=== PATIENT | female | born 1955 | race Caucasian/White ===

== ENCOUNTER 2021-02-23 14:40 | Inpatient (IN) | payer MEDICARE, OTHER ==
[2021-02-23 16:40] LABS: #Monocytes 0.5 10x3/uL (0.0-1.1); #Neutrophils 5.8 10x3/uL (1.5-8.4); %Basophils 0.5 % (0.0-2.0); %Lymphocytes 15.2 % (18.0-47.0); %Monocytes 6.7 % (0.0-10.0); %Neutrophils 76.9 % (40.0-75.0); Hemoglobin 11.4 g/dL (12.0-15.5); Mean Corpuscular HGB CONC 30.9 g/dL (32.0-36.0); Mean Corpuscular Hemoglobin 27.5 pg (27.0-33.0); Mean Corpuscular Volume 89.1 fl (81.6-98.3); Mean Platelet Volume 8.8 fl (7.4-10.4); Platelet Count 233 10x3/uL (150-450); RBC Distribution Width 15.4 % (11.5-14.5); Red Blood Cell (RBC) Count 4.14 10x6/uL (3.90-5.03); White Blood Cell (WBC) Count 7.6 10x3/uL (3.5-10.5)
[2021-02-23] MEDS ORDERED: Piperacillin/Tazobactam 4.5 GM VIAL ONE (16:52)
[2021-02-23 16:55] LABS: ALT (SGPT) 34 U/L (8-55); AST (SGOT) 26 U/L (5-34); Albumin 4.2 g/dL (3.4-4.8); Alkaline Phosphatase 67 U/L (40-110); Anion Gap 15 mmol/L (10-20); BUN (Urea Nitrogen) 22 mg/dL (9.8-20.1); Bilirubin, Total 0.4 mg/dL (0.2-1.2); Calc. Creatinine Clearance 0 mL/min (70-130); Calcium 9.8 mg/dL (7.8-10.44); Carbon Dioxide 25 mmol/L (23-31); Chloride 104 mmol/L (98-107); Globulin 2.9 g/dL (2.4-3.5); Glucose 128 mg/dL (80-115); Protein, Total 7.1 g/dL (5.8-8.1); Sodium 140 mmol/L (136-145)
[2021-02-23 17:36] LABS: Bilirubin Neg (Negative); Blood, Urine Negative (Negative); Clarity Clear (Clear); Glucose, Urine (Dipstick) Normal (Negative); Ketone, Urine Negative (Negative); Leukocyte Negative (Negative); Nitrite Negative (Negative); Protein, Urine (Dipstick) Negative (Neg-Trace); Urobilinogen Normal mg/dL (Less than 2)
[2021-02-23] MEDS ORDERED: Acetaminophen 325 MG TAB PO PRN (20:35)
[2021-02-23] MEDS ORDERED: SUMAtriptan Succinate 6 MG/0.5 ML VIAL SC PRN (20:41)
[2021-02-23 21:49] VITALS: BMI 56.0
[2021-02-23] MEDS ORDERED: Atorvastatin Calcium 20 MG TAB PO SCH (22:00)
[2021-02-23] MEDS ORDERED: Lantus 1000 UNITS/10 ML VIAL SC SCH (22:00)
[2021-02-23] MEDS ORDERED: Furosemide 20 MG TAB PO SCH (22:00)
[2021-02-23] MEDS ORDERED: Enoxaparin Sodium 40 MG/0.4 ML SYRINGE SC SCH (22:00)
[2021-02-23] MEDS ORDERED: Vancomycin HCl 1 GM in Sodium Chloride 0.9% 250 ML 250 ML IVPB SCH (22:00)
[2021-02-23] MEDS: traMADol HCl 50 MG TAB PO PRN (22:38)
[2021-02-23] MEDS: Piperacillin/Tazobactam 3.375 GM in Sodium Chloride 0.9% 100 ML IVPB SCH (22:40)
[2021-02-23] MEDS: Ventolin HFA Inhaler 60 PUFF INHALER INH PRN (22:40)
[2021-02-23] MEDS ORDERED: Piperacillin/Tazobactam 4.5 GM in Sodium Chloride 0.9% 100 ML IVPB SCH (23:59)
[2021-02-24] MEDS: HYDROcodone/Acetaminophen 5/325 mg Tablet PO PRN ×3 (00:15→20:04)
[2021-02-24] MEDS: Ventolin HFA Inhaler 60 PUFF INHALER INH PRN (05:46)
[2021-02-24] MEDS: Piperacillin/Tazobactam 3.375 GM in Sodium Chloride 0.9% 100 ML IVPB SCH ×3 (05:47→21:44)
[2021-02-24 06:20] LABS: #Basophils 0.1 10x3/uL (0.0-0.2); #Monocytes 0.6 10x3/uL (0.0-1.1); #Neutrophils 4.7 10x3/uL (1.5-8.4); %Basophils 0.7 % (0.0-2.0); %Lymphocytes 23.1 % (18.0-47.0); %Monocytes 8.5 % (0.0-10.0); %Neutrophils 67.3 % (40.0-75.0); Hemoglobin 10.5 g/dL (12.0-15.5); Mean Corpuscular Hemoglobin 27.6 pg (27.0-33.0); Mean Platelet Volume 8.6 fl (7.4-10.4); RBC Distribution Width 15.6 % (11.5-14.5); Red Blood Cell (RBC) Count 3.81 10x6/uL (3.90-5.03); White Blood Cell (WBC) Count 6.9 10x3/uL (3.5-10.5)
[2021-02-24 06:22] LABS: Platelet Count 216 10x3/uL (150-450)
[2021-02-24] MEDS: Mometasone/Formoterol 200/5 60 PUFF INH SCH ×2 (06:38→19:26)
[2021-02-24 06:41] LABS: Anion Gap 14 mmol/L (10-20); BUN (Urea Nitrogen) 21 mg/dL (9.8-20.1); Calc. Creatinine Clearance 90 mL/min (70-130); Calcium 9.2 mg/dL (7.8-10.44); Carbon Dioxide 25 mmol/L (23-31); Chloride 105 mmol/L (98-107); Glucose 101 mg/dL (80-115); Potassium 3.9 mmol/L (3.5-5.1); Sodium 140 mmol/L (136-145)
[2021-02-24] MEDS ORDERED: Hydrochlorothiazide 25 MG TAB PO SCH (09:00)
[2021-02-24] MEDS ORDERED: VANCOMYCIN 2 GRAM/400 ML BAG 2 GM in Premix Bag 1 BAG IVPB SCH (09:00)
[2021-02-24] MEDS ORDERED: Furosemide 20 MG TAB PO SCH (09:00)
[2021-02-24] MEDS: HumaLOG 300 UNITS/3 ML VIAL SC SCH ×2 (09:08→11:44)
[2021-02-24] MEDS ORDERED: Dextrose 50% Abboject 50 ML SYRINGE IVP PRN (09:15)
[2021-02-24] MEDS ORDERED: Dextrose 5% in Water 1,000 ML IV PRN (09:15)
[2021-02-24] MEDS: Lantus 1000 UNITS/10 ML VIAL SC SCH ×2 (10:21→20:55)
[2021-02-24] MEDS: Losartan Potassium 50 MG TAB PO SCH (10:38)
[2021-02-24] MEDS: Mupirocin 2% Ointment 22 GM Tube TOP SCH ×3 (10:40→20:55)
[2021-02-24] MEDS: HumaLOG 300 UNITS/3 ML VIAL SC PRN (12:27)
[2021-02-24] MEDS: traMADol HCl 50 MG TAB PO PRN ×2 (12:29→23:53)
[2021-02-24 17:59] LABS: SARS-CoV-2 PCR by NAA Not Detected (NotDetected)
[2021-02-24] MEDS: Atorvastatin Calcium 20 MG TAB PO SCH (20:04)
[2021-02-25] MEDS: Piperacillin/Tazobactam 3.375 GM in Sodium Chloride 0.9% 100 ML IVPB SCH ×3 (05:34→21:02)
[2021-02-25] MEDS: Mometasone/Formoterol 200/5 60 PUFF INH SCH ×2 (05:35→18:22)
[2021-02-25] MEDS: HYDROcodone/Acetaminophen 5/325 mg Tablet PO PRN ×3 (05:35→23:43)
[2021-02-25] MEDS: Furosemide 20 MG TAB PO SCH (08:23)
[2021-02-25] MEDS: traMADol HCl 50 MG TAB PO PRN ×2 (08:23→20:59)
[2021-02-25] MEDS: Lantus 1000 UNITS/10 ML VIAL SC SCH ×2 (08:25→21:00)
[2021-02-25] MEDS: Losartan Potassium 50 MG TAB PO SCH (08:25)
[2021-02-25] MEDS: Mupirocin 2% Ointment 22 GM Tube TOP SCH ×3 (08:26→21:00)
[2021-02-25] MEDS ORDERED: VANCOMYCIN 2 GRAM/400 ML BAG 2 GM in Premix Bag 1 BAG IVPB SCH (09:00)
[2021-02-25] MEDS: HumaLOG 300 UNITS/3 ML VIAL SC PRN (12:20)
[2021-02-25] MEDS: Atorvastatin Calcium 20 MG TAB PO SCH (21:00)
[2021-02-26] MEDS: Piperacillin/Tazobactam 3.375 GM in Sodium Chloride 0.9% 100 ML IVPB SCH ×2 (05:47→14:03)
[2021-02-26] MEDS: HYDROcodone/Acetaminophen 5/325 mg Tablet PO PRN ×2 (05:47→12:17)
[2021-02-26 06:09] LABS: ALT (SGPT) 37 U/L (8-55); AST (SGOT) 25 U/L (5-34); Albumin 3.7 g/dL (3.4-4.8); Alkaline Phosphatase 59 U/L (40-110); Anion Gap 14 mmol/L (10-20); BUN (Urea Nitrogen) 21 mg/dL (9.8-20.1); Bilirubin, Total 0.4 mg/dL (0.2-1.2); Calc. Creatinine Clearance 96 mL/min (70-130); Calcium 9.2 mg/dL (7.8-10.44); Carbon Dioxide 26 mmol/L (23-31); Chloride 103 mmol/L (98-107); Globulin 2.4 g/dL (2.4-3.5); Glucose 136 mg/dL (80-115); Potassium 4.1 mmol/L (3.5-5.1); Protein, Total 6.1 g/dL (5.8-8.1); Sodium 139 mmol/L (136-145)
[2021-02-26] MEDS: Mometasone/Formoterol 200/5 60 PUFF INH SCH (07:14)
[2021-02-26] MEDS: Losartan Potassium 50 MG TAB PO SCH (08:36)
[2021-02-26] MEDS: traMADol HCl 50 MG TAB PO PRN (08:36)
[2021-02-26] MEDS: Furosemide 20 MG TAB PO SCH (08:36)
[2021-02-26] MEDS: Lantus 1000 UNITS/10 ML VIAL SC SCH (08:37)
[2021-02-26] MEDS: Mupirocin 2% Ointment 22 GM Tube TOP SCH ×2 (08:37→14:02)
[2021-02-26 13:05] VITALS: BP 142/67; TEMP 98.7
[2021-02-26] MEDS ORDERED: Doxycycline 100 MG CAP PO SCH (21:00)
== END 2021-02-26 15:25 | disposition home or self-care (01) | DRG 603 ==
LOC: CSHERS 14:40 → CSHTELE 21:44
PROVIDERS: ADMIT Family Medicine; ATTEND Family Medicine
DX: L03.115 Cellulitis of right lower limb (principal); Z68.43 Body mass index [BMI] 50.0-59.9, adult; E11.42 Type 2 diabetes mellitus with diabetic polyneuropathy; E78.5 Hyperlipidemia, unspecified; G47.33 Obstructive sleep apnea (adult) (pediatric); E66.01 Morbid (severe) obesity due to excess calories; Z79.4 Long term (current) use of insulin; I10 Essential (primary) hypertension; Z88.6 Allergy status to analgesic agent; Z88.1 Allergy status to other antibiotic agents; Z91.040 Latex allergy status; Z20.822 Contact with and (suspected) exposure to COVID-19; J45.20 Mild intermittent asthma, uncomplicated
CPT/HCPCS: 36415; 36416; 80048; 80053; 81003; 83605; 83735; 85025; 87040; 87635; 96365; 96366; 96367; J1650; J1815; J2543; J3370; J3490; J7050; U0003; U0005

== ENCOUNTER 2021-07-21 09:01 | Outpatient (CLI) | payer MEDICARE, OTHER | END 2021-07-21 09:02 | disposition home or self-care (01) | LOC: CSHULT 09:01 | PROVIDERS: ATTEND Urology | DX: N20.0 Calculus of kidney (principal); N28.1 Cyst of kidney, acquired | CPT/HCPCS: 74018; 76770 ==

== ENCOUNTER 2021-12-04 10:59 | Emergency (ER) | payer MEDICARE, OTHER ==
[2021-12-04] MEDS ORDERED: Dexamethasone 10 MG/ML VIAL ONE (11:58)
[2021-12-04] MEDS ORDERED: predniSONE 20 MG TAB ONE (11:58)
[2021-12-04 22:19] LABS: SARS-CoV-2 PCR by NAA DETECTED (NotDetected)
== END 2021-12-04 12:14 | disposition home or self-care (01) ==
LOC: CSHERS 10:59
DX: U07.1 COVID-19 (principal); J12.82 Pneumonia due to coronavirus disease 2019; I12.9 Hypertensive chronic kidney disease with stage 1 through stage 4 chronic kidney disease, or unspecified chronic kidney disease; N18.30 Chronic kidney disease, stage 3 unspecified; E10.22 Type 1 diabetes mellitus with diabetic chronic kidney disease; E78.5 Hyperlipidemia, unspecified; E78.00 Pure hypercholesterolemia, unspecified; J45.909 Unspecified asthma, uncomplicated; E66.9 Obesity, unspecified
CPT/HCPCS: 71045; 96372; 99285; U0003; U0005; J1100; J7512

== ENCOUNTER 2022-05-31 13:38 | Outpatient (CLI) | payer MEDICARE, OTHER ==
[~2022-05-31 13:38] MED LIST: Iopamidol 300 61% 100 ML VIAL FS ONE
== END 2022-05-31 13:39 | disposition home or self-care (01) ==
LOC: CSHCT 13:38
PROVIDERS: ATTEND Internal Medicine
DX: C18.7 Malignant neoplasm of sigmoid colon (principal); C78.7 Secondary malignant neoplasm of liver and intrahepatic bile duct; C78.00 Secondary malignant neoplasm of unspecified lung; E78.5 Hyperlipidemia, unspecified; C18.9 Malignant neoplasm of colon, unspecified; E11.40 Type 2 diabetes mellitus with diabetic neuropathy, unspecified; I12.9 Hypertensive chronic kidney disease with stage 1 through stage 4 chronic kidney disease, or unspecified chronic kidney disease; E11.22 Type 2 diabetes mellitus with diabetic chronic kidney disease; N18.32 Chronic kidney disease, stage 3b
CPT/HCPCS: 36415; 71260; 74177; 80053; 80061; 82043; 83036; 83540; 83550; 84439; 84443; 85025; Q9967

== ENCOUNTER 2022-11-22 08:36 | Outpatient (CLI) | payer MEDICARE, OTHER ==
[2022-11-22] MEDS ORDERED: Iopamidol 300 61% 100 ML VIAL FS ONE (13:19)
== END 2022-11-22 08:37 | disposition home or self-care (01) ==
LOC: CSHCT 08:36
PROVIDERS: ATTEND Internal Medicine Hematology & Oncology
DX: C18.7 Malignant neoplasm of sigmoid colon (principal); D50.0 Iron deficiency anemia secondary to blood loss (chronic); R91.8 Other nonspecific abnormal finding of lung field; R16.0 Hepatomegaly, not elsewhere classified; R59.0 Localized enlarged lymph nodes; N28.9 Disorder of kidney and ureter, unspecified
CPT/HCPCS: 71260; 74177; 82565; Q9967

== ENCOUNTER 2023-01-15 07:19 | Emergency (ER) | payer OTHER, MEDICARE ==
[2023-01-15] MEDS ORDERED: Morphine 4 MG/ML VIAL ONE (08:45)
== END 2023-01-15 08:55 | disposition home or self-care (01) ==
LOC: CSHERS 07:19
DX: S70.01XA Contusion of right hip, initial encounter (principal); S50.02XA Contusion of left elbow, initial encounter; E78.00 Pure hypercholesterolemia, unspecified; E66.9 Obesity, unspecified; E10.22 Type 1 diabetes mellitus with diabetic chronic kidney disease; I12.9 Hypertensive chronic kidney disease with stage 1 through stage 4 chronic kidney disease, or unspecified chronic kidney disease; N18.30 Chronic kidney disease, stage 3 unspecified; Z79.4 Long term (current) use of insulin; W01.0XXA Fall on same level from slipping, tripping and stumbling without subsequent striking against object, initial encounter
CPT/HCPCS: 96372; J2270

== ENCOUNTER 2023-02-20 08:42 | Outpatient (CLI) | payer MEDICARE, OTHER ==
[2023-02-20] MEDS ORDERED: Iopamidol 300 61% 100 ML VIAL FS ONE (15:55)
== END 2023-02-20 08:43 | disposition home or self-care (01) ==
LOC: CSHCT 08:42
PROVIDERS: ATTEND Internal Medicine Hematology & Oncology
DX: C18.9 Malignant neoplasm of colon, unspecified (principal); C78.00 Secondary malignant neoplasm of unspecified lung; K76.9 Liver disease, unspecified
CPT/HCPCS: 71260; 74177; Q9967

== ENCOUNTER 2023-02-24 11:03 | Emergency (ER) | payer MEDICARE, OTHER ==
[2023-02-24] MEDS ORDERED: Ondansetron PF 4 MG/2 ML Vial ONE (11:40)
[2023-02-24 12:06] LABS: #Monocytes 0.5 10x3/uL (0.0-1.1); #Neutrophils 2.5 10x3/uL (1.5-8.4); %Basophils 0.7 % (0.0-2.0); %Lymphocytes 24.5 % (18.0-47.0); %Monocytes 11.6 % (0.0-10.0); %Neutrophils 61.3 % (40.0-75.0); Hemoglobin 11.3 g/dL (12.0-15.5); Mean Corpuscular HGB CONC 32.3 g/dL (32.0-36.0); Mean Corpuscular Hemoglobin 31.2 pg (27.0-33.0); Mean Corpuscular Volume 96.7 fl (81.6-98.3); Mean Platelet Volume 9.7 fl (7.4-10.4); Platelet Count 148 10x3/uL (150-450); RBC Distribution Width 16.9 % (11.5-14.5); Red Blood Cell (RBC) Count 3.62 10x6/uL (3.90-5.03); White Blood Cell (WBC) Count 4.1 10x3/uL (3.5-10.5)
[2023-02-24 12:12] LABS: ALT (SGPT) 19 U/L (8-55); AST (SGOT) 24 U/L (5-34); Albumin 3.8 g/dL (3.4-4.8); Alkaline Phosphatase 66 U/L (40-110); Anion Gap 17 mmol/L (10-20); BUN (Urea Nitrogen) 8 mg/dL (9.8-20.1); Bilirubin, Total 0.4 mg/dL (0.2-1.2); Calc. Creatinine Clearance 0 mL/min (70-130); Calcium 9.5 mg/dL (7.8-10.44); Carbon Dioxide 22 mmol/L (23-31); Chloride 105 mmol/L (98-107); Estimated GFR 70; Globulin 2.8 g/dL (2.4-3.5); Glucose 151 mg/dL (80-115); Lipase 24 U/L (8-78); Potassium 3.9 mmol/L (3.5-5.1); Protein, Total 6.6 g/dL (5.8-8.1); Sodium 140 mmol/L (136-145)
[2023-02-24 12:19] LABS: Platelet Morphology Comment Appears Decreased; RBC Morphology Normal
== END 2023-02-24 12:38 | disposition home or self-care (01) ==
LOC: CSHERS 11:03
DX: R10.9 Unspecified abdominal pain (principal); E10.9 Type 1 diabetes mellitus without complications; E78.00 Pure hypercholesterolemia, unspecified; E66.9 Obesity, unspecified; I12.9 Hypertensive chronic kidney disease with stage 1 through stage 4 chronic kidney disease, or unspecified chronic kidney disease; N18.30 Chronic kidney disease, stage 3 unspecified
CPT/HCPCS: 36415; 36416; 80053; 83690; 84484; 85025; 96361; 96374; J2405

== ENCOUNTER 2023-07-03 09:25 | Outpatient (CLI) | payer MEDICARE, OTHER ==
[2023-07-03] MEDS ORDERED: Iopamidol 300 61% 100 ML VIAL FS ONE (10:47)
== END 2023-07-03 09:26 | disposition home or self-care (01) ==
LOC: CSHCT 09:25
PROVIDERS: ATTEND Internal Medicine Hematology & Oncology
DX: C18.9 Malignant neoplasm of colon, unspecified (principal); R91.8 Other nonspecific abnormal finding of lung field; N28.89 Other specified disorders of kidney and ureter
CPT/HCPCS: 71260; 74177

== ENCOUNTER 2023-08-09 08:54 | Outpatient (CLI) | payer MEDICARE, OTHER | END 2023-08-09 08:55 | disposition home or self-care (01) | LOC: CSHRAD 08:54 | PROVIDERS: ATTEND Podiatrist | DX: L97.519 Non-pressure chronic ulcer of other part of right foot with unspecified severity (principal); M89.8X7 Other specified disorders of bone, ankle and foot; M79.89 Other specified soft tissue disorders ==

== ENCOUNTER 2023-09-18 10:36 | Outpatient (CLI) | payer MEDICARE, OTHER | END 2023-09-18 10:37 | disposition home or self-care (01) | LOC: CSHRAD 10:36 | PROVIDERS: ATTEND Podiatrist | DX: M86.8X7 Other osteomyelitis, ankle and foot (principal) ==

== ENCOUNTER 2023-10-12 08:30 | Outpatient (CLI) | payer MEDICARE, OTHER ==
[2023-10-12] MEDS ORDERED: Iopamidol 300 61% 100 ML VIAL FS ONE (12:39)
== END 2023-10-12 08:31 | disposition home or self-care (01) ==
LOC: CSHCT 08:30
PROVIDERS: ATTEND Internal Medicine Hematology & Oncology
DX: C18.9 Malignant neoplasm of colon, unspecified (principal); R91.8 Other nonspecific abnormal finding of lung field; N28.89 Other specified disorders of kidney and ureter
CPT/HCPCS: 71260; 74177; Q9967

== ENCOUNTER 2024-01-11 10:25 | Emergency (ER) | payer MEDICARE, OTHER ==
[2024-01-11] MEDS ORDERED: Iopamidol 300 61% 100 ML VIAL FS ONE (10:42)
[2024-01-11] MEDS ORDERED: Morphine 4 MG/ML VIAL ONE ×2 (11:19→13:35)
[2024-01-11] MEDS ORDERED: Ondansetron PF 4 MG/2 ML Vial ONE (11:19)
[2024-01-11 11:31] LABS: #Monocytes 0.4 10x3/uL (0.0-1.1); #Neutrophils 1.9 10x3/uL (1.5-8.4); %Basophils 0.6 % (0.0-2.0); %Eosinophils 1.2 % (0.0-6.0); %Lymphocytes 28.8 % (18.0-47.0); %Neutrophils 57.2 % (40.0-75.0); Hematocrit 32.7 % (34.9-44.5); Hemoglobin 10.8 g/dL (12.0-15.5); Mean Corpuscular Hemoglobin 30.4 pg (27.0-33.0); Mean Corpuscular Volume 92.1 fl (81.6-98.3); Mean Platelet Volume 8.4 fl (7.4-10.4); Platelet Count 120 10x3/uL (150-450); RBC Distribution Width 17.5 % (11.5-14.5); Red Blood Cell (RBC) Count 3.55 10x6/uL (3.90-5.03); White Blood Cell (WBC) Count 3.4 10x3/uL (3.5-10.5)
[2024-01-11 11:53] LABS: ALT (SGPT) 22 U/L (8-55); AST (SGOT) 25 U/L (5-34); Albumin 3.5 g/dL (3.4-4.8); Alkaline Phosphatase 78 U/L (40-110); Anion Gap 13 mmol/L (10-20); BUN (Urea Nitrogen) 12 mg/dL (9.8-20.1); Bilirubin, Total 0.5 mg/dL (0.2-1.2); Calc. Creatinine Clearance 0 mL/min (70-130); Calcium 8.7 mg/dL (7.8-10.44); Carbon Dioxide 28 mmol/L (23-31); Chloride 104 mmol/L (98-107); Estimated GFR 55; Globulin 1.7 g/dL (2.4-3.5); Glucose 172 mg/dL (80-115); Lipase 18 U/L (8-78); Potassium 3.8 mmol/L (3.5-5.1); Protein, Total 5.2 g/dL (5.8-8.1); Sodium 141 mmol/L (136-145); Troponin I Less than 0.010 ng/mL (< 0.028)
[2024-01-11 14:22] LABS: Lactic Acid 1.5 mmol/L (0.5-2.2)
[2024-01-11 18:54] LABS: Bilirubin Neg (Negative); Blood, Urine Negative (Negative); Clarity Clear (Clear); Glucose, Urine (Dipstick) Normal (Negative); Ketone, Urine Negative (Negative); Leukocyte Negative (Negative); Nitrite Negative (Negative); Protein, Urine (Dipstick) 500 mg/dl (Neg-Trace); Urobilinogen Normal mg/dL (Less than 2)
[2024-01-11 19:05] LABS: Bacteria/HPF 2+ HPF (None Seen); CAUTI Indications for Culture Pelvic or flank pain; RBC/HPF None Seen HPF (0-3); Urine Culture Reflex No No; WBC/HPF 0-3 HPF (0-3)
== END 2024-01-11 16:58 | disposition home or self-care (01) ==
LOC: CSHERS 10:25
DX: N39.0 Urinary tract infection, site not specified (principal); K80.20 Calculus of gallbladder without cholecystitis without obstruction; I10 Essential (primary) hypertension; I25.10 Atherosclerotic heart disease of native coronary artery without angina pectoris; E11.9 Type 2 diabetes mellitus without complications
CPT/HCPCS: 71045; 74177; 76705; 80053; 81001; 83605; 83690; 83880; 84484; 85025; 93005; 96361; 96374; 96375; 96376; J1642; J2270; J2405